=== PATIENT | female | born 1960 | race Caucasian/White ===

== ENCOUNTER → 2017-02-03 | Outpatient (CLI) | payer OTHER ==
[~2017-02-03] VITALS: Ht 172.7 cm; Wt 120.2 kg
[~2017-02-03] MED LIST: ALEV220C2 PO; ALL10TAB27 PO; CALC500T49 PO; LEXA1TAB PO; LIDOCAINE 2% INJ 100 MG/5 ML SDV (FOR ANES.) As Ordered ONE; LISI10TA4 PO; LR 1,000 ML IV SCH; MULT1TAB10 PO; OMEP20CA3 PO; PROPOFOL 200 MG/20 ML VIAL As Ordered ONE
--- NOTE | 2017-02-03 08:13 | ROOR ---
Patient Name: Michela Ocasio Procedure Date: 02/03/2017 7:29 AM Date of : 1960 Age: 56 Room: [facility] Gender: Female Note Status: Finalized Procedure: Upper GI endoscopy Indications: Esophageal reflux Providers: Juliano Harp MD Referring MD: IDANIA ALBERTO MD Requesting Provider: Medicines: Monitored Anesthesia Care Complications: No immediate complications. Procedure: Pre-Anesthesia Assessment: - Prior to the procedure, a History and Physical was performed, and patient medications and allergies were reviewed. The patient is competent. The risks and benefits of the procedure and the sedation options and risks were discussed with the patient. All questions were answered and informed consent was obtained. Patient identification and proposed procedure were verified by the physician, the nurse and the anesthesiologist in the procedure room. Mental Status Examination: alert and oriented. Airway Examination: normal oropharyngeal airway and neck mobility. CV Examination: regular rate and rhythm. Prophylactic Antibiotics: The patient does not require prophylactic antibiotics. Prior Anticoagulants: The patient has taken no previous anticoagulant or antiplatelet agents. ASA Grade Assessment: III - A patient with severe systemic disease. After reviewing the risks and benefits, the patient was deemed in satisfactory condition to undergo the procedure. The anesthesia plan was to use monitored anesthesia care (MAC). Immediately prior to administration of medications, the patient was re-assessed for adequacy to receive sedatives. The heart rate, respiratory rate, oxygen saturations, blood pressure, adequacy of pulmonary ventilation, and response to care were monitored throughout the procedure. The physical status of the patient was re-assessed after the procedure. The Endoscope was introduced through the mouth, and advanced to the second part of duodenum. The upper GI endoscopy was accomplished without difficulty. The patient tolerated the procedure well. Findings: The examined esophagus was normal. The entire examined stomach was normal. The examined duodenum was normal. Impression: - Normal esophagus. - Normal stomach. - Normal examined duodenum. - No specimens collected. Recommendation: - Discharge patient to home. - Resume regular diet. - Continue present medications. Juliano Harp MD 02/03/2017 8:12:49 AM Number of Addenda: 0 Note Initiated On: 02/03/2017 7:29 AM Estimated Blood Loss: Estimated blood loss: none.
--- NOTE | 2017-02-03 08:18 | ROOR ---
Patient Name: Michela Ocasio Procedure Date: 02/03/2017 7:30 AM Date of : 1960 Age: 56 Room: [facility] Gender: Female Note Status: Finalized Procedure: Colonoscopy Indications: Screening in patient at increased risk: Colorectal cancer in mother 60 or older, Last colonoscopy: 2011 Providers: Juliano Harp MD Referring MD: IDANIA ALBERTO MD Requesting Provider: Medicines: Monitored Anesthesia Care Complications: No immediate complications. Procedure: Pre-Anesthesia Assessment: - Prior to the procedure, a History and Physical was performed, and patient medications and allergies were reviewed. The patient is competent. The risks and benefits of the procedure and the sedation options and risks were discussed with the patient. All questions were answered and informed consent was obtained. Patient identification and proposed procedure were verified by the physician, the nurse and the anesthesiologist in the procedure room. Mental Status Examination: alert and oriented. Airway Examination: normal oropharyngeal airway and neck mobility. CV Examination: regular rate and rhythm. Prophylactic Antibiotics: The patient does not require prophylactic antibiotics. Prior Anticoagulants: The patient has taken no previous anticoagulant or antiplatelet agents. ASA Grade Assessment: III - A patient with severe systemic disease. After reviewing the risks and benefits, the patient was deemed in satisfactory condition to undergo the procedure. The anesthesia plan was to use monitored anesthesia care (MAC). Immediately prior to administration of medications, the patient was re-assessed for adequacy to receive sedatives. The heart rate, respiratory rate, oxygen saturations, blood pressure, adequacy of pulmonary ventilation, and response to care were monitored throughout the procedure. The physical status of the patient was re-assessed after the procedure. The Colonoscope [id number] #[id number] was introduced through the anus and advanced to the cecum, identified by appendiceal orifice and ileocecal valve. The colonoscopy was performed without difficulty. The patient tolerated the procedure well. The quality of the bowel preparation was excellent. Findings: The perianal and digital rectal examinations were normal. The colon (entire examined portion) appeared normal. Impression: - The entire examined colon is normal. - No specimens collected. Recommendation: - Discharge patient to home. - Resume regular diet. - Continue present medications. Juliano Harp MD 02/03/2017 8:17:36 AM Number of Addenda: 0 Note Initiated On: 02/03/2017 7:30 AM Estimated Blood Loss: Estimated blood loss: none.
[2017-02-03 08:40] VITALS: BP 116/63
== END | disposition home or self-care (01) ==
LOC: M OPP 06:16
PROVIDERS: ATTEND Surgery
DX: Z12.11 Encounter for screening for malignant neoplasm of colon (principal); Z80.0 Family history of malignant neoplasm of digestive organs; K21.9 Gastro-esophageal reflux disease without esophagitis; R12 Heartburn; Z86.14 Personal history of Methicillin resistant Staphylococcus aureus infection; M19.90 Unspecified osteoarthritis, unspecified site; F32.9 Major depressive disorder, single episode, unspecified; F41.9 Anxiety disorder, unspecified; E66.9 Obesity, unspecified; Z78.0 Asymptomatic menopausal state; R06.83 Snoring; G47.30 Sleep apnea, unspecified; Z88.2 Allergy status to sulfonamides; Z79.899 Other long term (current) drug therapy

== ENCOUNTER → 2017-04-24 | Outpatient (CLI) | payer OTHER ==
[~2017-04-24] MED LIST changes: -LIDOCAINE 2% INJ 100 MG/5 ML SDV (FOR ANES.) As Ordered ONE; -LR 1,000 ML IV SCH; -PROPOFOL 200 MG/20 ML VIAL As Ordered ONE
--- NOTE | 2017-04-24 16:41 | REP ---
LEFT FOOT COMPLETE: 04/24/2017. Clinical history: Left foot pain. Findings: No prior studies. Large dorsal spur from anterior process of the talus noted and some spurring from the T N T joints dorsally. There is an old healed and remodeled fracture distal shaft of the fifth metatarsal with degenerative changes at the first MTP joint and a mild hallux valgus deformity. IP joints also show some degenerative change. Metatarsus varus also noted and flat foot deformity on the true lateral view. No acute fracture. Impression: 1. Flat foot deformity with dorsal spurs on the anterior process of talus, tarsal navicular bones and old healed and remodeled fracture fifth metatarsal shaft distally. 2. Metatarsus varus and hallux valgus deformity. Signed by Ricardo Ibrahim MD 04/24/2017 04:33 P
--- NOTE | 2017-04-24 17:08 | REP ---
LEFT KNEE, COMPLETE: 04/24/2017: No prior studies available. The report from prior x-ray 05/10/2007 at [facility] is reviewed showing degenerative change. No images available. Clinical history: Knee pain. Findings: Five view show a left total knee arthroplasty with the three components well-aligned in relationship to the [place] bone and each other. There is a joint effusion evident. I see no fracture and no prosthetic loosening or sign of infection. No abnormal soft tissue calcifications. There are some phleboliths evident. Impression: 1. Tricompartment osteoarthritis with a joint effusion. Signed by Ricardo Ibrahim MD 04/24/2017 05:16 P
== END ==
LOC: M WUC 15:59
PROVIDERS: ATTEND Physician Assistant
DX: M79.672 Pain in left foot (principal); M17.12 Unilateral primary osteoarthritis, left knee; M25.462 Effusion, left knee

== ENCOUNTER → 2017-06-29 | Outpatient (CLI) | payer OTHER ==
--- NOTE | 2017-06-29 09:57 | REPMRS ---
Patient History The patient states she had a clinical breast exam in 05/2017. Patient is postmenopausal. Family history of colorectal cancer in mother at age 70. Benign excisional biopsy of the right breast. Digital Woman Screen Mammo: June 29, 2017 - Exam #: [id number] Bilateral CC and MLO view(s) were taken. Technologist: Yumi Flores, Technologist Prior study comparison: February 08, 2016, digital woman screen mammo performed at [facility] to [facility]. December 26, 2014, digital woman screen mammo performed at [facility] to [facility]. FINDINGS: There are scattered fibroglandular densities. There has been no change in the appearance of the mammogram from the prior studies. There is a mild amount of residual fibroglandular tissue which is fairly symmetric. There is no interval development of dominant mass, architectural distortion, or clustered microcalcification suggestive of malignancy. ASSESSMENT: BI-RADS/ACR category 1 mammogram. Negative. Recommendation Routine screening mammogram in 1 year (for women over age 40). This mammogram was interpreted with the aid of an FDA-approved computer-aided dectection system. Electronically Signed By: Pramod Zavaleta MD 06/29/17 0956
== END ==
LOC: M WHC 08:52
PROVIDERS: ATTEND Nurse Practitioner Family
DX: Z12.31 Encounter for screening mammogram for malignant neoplasm of breast (principal); Z78.0 Asymptomatic menopausal state

== ENCOUNTER → 2018-06-29 | Outpatient (CLI) | payer OTHER ==
[2018-06-29 17:48] LABS: ANION GAP 4 MEQ/L (8-16); BLOOD UREA NITROGEN 17 MG/DL (7-18); CALCIUM LEVEL 9.3 MG/DL (8.5-10.1); CARBON DIOXIDE LEVEL 32 MEQ/L (21-32); CHLORIDE LEVEL 105 MEQ/L (98-107); CREATININE FOR GFR 0.69 MG/DL (0.55-1.30); GLOMERULAR FILTRATION RATE > 60.0 (>51); GLUCOSE, FASTING 106 MG/DL (70-100); POTASSIUM SERUM 4.4 MEQ/L (3.5-5.1); SODIUM LEVEL 141 MEQ/L (136-145)
[2018-06-29 18:15] LABS: APPEARANCE, URINE CLEAR (CLEAR); BACTERIA, URINE AUTO NEGATIVE (NEGATIVE); BILIRUBIN, URINE AUTO NEGATIVE (NEGATIVE); BLOOD, URINE BLOOD NEGATIVE (NEGATIVE); COLOR, URINE YELLOW (YELLOW); GLUCOSE, URINE (UA) AUTO NEGATIVE (NEGATIVE); KETONE, URINE AUTO NEGATIVE (NEGATIVE); LEUKOCYTE ESTERASE, URINE AUTO NEGATIVE (NEGATIVE); NITRITE, URINE AUTO NEGATIVE (NEGATIVE); PROTEIN, URINE AUTO NEGATIVE (NEGATIVE); RBC, URINE AUTO 0 /HPF (0-3); SPECIFIC GRAVITY URINE AUTO 1.015 (1.002-1.035); SQUAMOUS EPITHELIAL CELL UR AU 0 /HPF (0-6); UROBILINOGEN, URINE AUTO 0.2 mg/dL (0.0-2.0); WBC, URINE AUTO 2 /HPF (0-3)
== END ==
LOC: M SMT 15:06
DX: N28.1 Cyst of kidney, acquired (principal); R30.0 Dysuria
CPT/HCPCS: 80048

== ENCOUNTER → 2018-07-07 | Outpatient (CLI) | payer OTHER ==
[~2018-07-07] MED LIST changes: -ALEV220C2 PO; -ALL10TAB27 PO; -CALC500T49 PO; +ISOVUE-370 76% 100ML VIAL (Q9967) As Ordered; -LEXA1TAB PO; -LISI10TA4 PO; -MULT1TAB10 PO; -OMEP20CA3 PO
== END ==
LOC: M RAD 13:30
DX: N28.1 Cyst of kidney, acquired (principal); R10.9 Unspecified abdominal pain; Z87.440 Personal history of urinary (tract) infections
CPT/HCPCS: Q9967

== ENCOUNTER → 2018-07-14 | Outpatient (CLI) | payer OTHER | LOC: M WHC 14:14 | DX: Z12.31 Encounter for screening mammogram for malignant neoplasm of breast (principal) | CPT/HCPCS: 77067 ==

== ENCOUNTER → 2018-07-14 | Outpatient (REF) | payer OTHER | LOC: M SFHCWAGY 15:10 | DX: Z12.4 Encounter for screening for malignant neoplasm of cervix (principal) ==

== ENCOUNTER → 2018-10-24 | Outpatient (REF) | payer OTHER ==
[~2018-10-24] MED LIST changes: +ALEV220C2 PO; +ALL10TAB28 PO; +CALC500T49 PO; -ISOVUE-370 76% 100ML VIAL (Q9967) As Ordered; +LEXA1TAB PO; +LISI10TA4 PO; +MULT1TAB10 PO; +OMEP20CA3 PO
[2018-10-24 18:00] LABS: INFLUENZA A AMPLIFICATION NEGATIVE (NEGATIVE); INFLUENZA B AMPLIFICATION NEGATIVE (NEGATIVE)
== END ==
LOC: M LAB REF 11:13
PROVIDERS: ATTEND Physician Assistant
DX: J11.1 Influenza due to unidentified influenza virus with other respiratory manifestations (principal)

== ENCOUNTER → 2019-08-11 | Outpatient (CLI) | payer OTHER ==
[~2019-08-11] MED LIST changes: -ALL10TAB28 PO; +ALL10TAB29 PO; +OMEP-172 PO; -OMEP20CA3 PO
--- NOTE | 2019-08-11 14:21 | REPMRS ---
Patient History The patient states she had a clinical breast exam in July 2019.Family history of colorectal cancer at age 70 in mother. Benign excisional biopsy of the right breast. 3D TOMOSYNTHESIS WAS PERFORMED. [facility] lifetime risk for breast cancer is 6.2%. Digital Woman Screen Mammo: August 11, 2019 - Exam #: [id number] Bilateral CC and MLO view(s) were taken. Technologist: Flower Li, Technologist Prior study comparison: July 14, 2018, bilateral digital woman screen mammo performed at [facility]. June 29, 2017, digital woman screen mammo performed at [facility]. FINDINGS: There are scattered fibroglandular densities. There has been no change in the appearance of the mammogram from the prior studies. There is a mild amount of residual fibroglandular tissue which is fairly symmetric. There is no interval development of dominant mass, architectural distortion, or clustered microcalcification suggestive of malignancy. Assessment: BI-RADS/ACR category 1 mammogram. Negative Mammogram. Recommendation Routine screening mammogram in 1 year (for women over age 40). This mammogram was interpreted with the aid of an FDA-approved computer-aided dectection system. Electronically Signed By: Pramod Zavaleta MD 08/11/19 0225
== END ==
LOC: M WHC 13:04
PROVIDERS: ATTEND Nurse Practitioner Family
DX: Z12.31 Encounter for screening mammogram for malignant neoplasm of breast (principal)

== ENCOUNTER → 2019-12-26 | Outpatient (CLI) | payer OTHER ==
[~2019-12-26] MED LIST changes: +CALC600C3 PO; +D3 U1000 PO; +METF-839 PO; +MULTCAP PO; +MV-M1TAB13 PO; -OMEP-172 PO; +OMEP1CAP73 PO; +OXYC-517 PO; +PRIL20TA2 PO; +TURM500C PO; +XARE10TA PO
[2019-12-26 16:44] LABS: HEMATOCRIT 37.6 % (36.0-47.0); HEMOGLOBIN 11.9 g/dl (12.0-15.5); MEAN CORPUSCULAR HEMOGLOBIN 27.6 pg (27.0-33.0); MEAN CORPUSCULAR HGB CONC 31.6 g/dl (32.0-36.5); MEAN CORPUSCULAR VOLUME 87.2 fl (80.0-96.0); PLATELET COUNT, AUTOMATED 266 10^3/uL (150-450); RED BLOOD COUNT 4.31 10^6/uL (4.00-5.40); WHITE BLOOD COUNT 8.2 10^3/uL (4.0-10.0)
[2019-12-26 16:56] LABS: INR 1.05; PROTHROMBIN TIME 13.4 SECONDS (11.8-14.0)
[2019-12-26 17:01] LABS: BLOOD UREA NITROGEN 19 MG/DL (7-18); CALCIUM LEVEL 9.5 MG/DL (8.5-10.1); CARBON DIOXIDE LEVEL 31 MEQ/L (21-32); CHLORIDE LEVEL 104 MEQ/L (98-107); CREATININE FOR GFR 0.67 MG/DL (0.55-1.30); GLOMERULAR FILTRATION RATE > 60.0 (>51); GLUCOSE, FASTING 92 MG/DL (70-100); POTASSIUM SERUM 4.5 MEQ/L (3.5-5.1); SODIUM LEVEL 140 MEQ/L (136-145)
--- NOTE | 2019-12-27 19:12 | ECGEPIP ---
[facility] Test Date: 2019-12-26 Pat Name: MOSHE PAIGE Department: Room: - Gender: Female [employer]: RENETTA : 1960 Requested By: Cj Taylor PA-C Order Number: [id number] Reading MD: Rao Key Measurements Intervals [place] Rate: 59 P: 62 UT: 179 QRS: 16 QRSD: 97 T: 12 QT: 396 QTc: 395 Interpretive Statements SINUS BRADYCARDIA LOW QRS VOLTAGE IN PRECORDIAL LEADS NO PRIOR Electronically Signed on 12-27-2019 19:12:22 EDT by Rao Key
== END ==
LOC: M LAB 15:46
DX: Z01.818 Encounter for other preprocedural examination (principal); M19.072 Primary osteoarthritis, left ankle and foot

== ENCOUNTER → 2019-12-31 | Outpatient (CLI) | payer OTHER | LOC: M LABSMTC 09:09 | PROVIDERS: ATTEND Anesthesiology | DX: Z01.818 Encounter for other preprocedural examination (principal); Z11.59 Encounter for screening for other viral diseases | CPT/HCPCS: C9803; U0003 ==

== ENCOUNTER 2020-01-03 06:14 | Inpatient (IN) | payer OTHER ==
--- NOTE | 2020-01-02 14:54 | HPE ---
DATE OF ADMISSION: 01/03/2020 CHIEF COMPLAINT: Left foot pain. HISTORY OF PRESENT ILLNESS: Michela Ocasio is a 59-year-old female who has longstanding pain and deformity due to advanced flatfoot deformity. She has failed conservative measures. She presents for a left double arthrodesis and gastrocnemius recession and along with a medializing calcaneal osteotomy. The patient's past medical history includes metabolic disease, gastroesophageal reflux disease (GERD), allergic rhinitis, major depressive episodes, hypertension, prediabetes. PAST SURGICAL HISTORY: Hysteroscopy, tonsillectomy, knee replacement, colonoscopy. SOCIAL HISTORY: The patient is . She lives with her spouse and daughter. She does not smoke. She does not use drugs, and she occasionally drinks. PHYSICAL EXAMINATION: Vital signs are stable. Lungs: Regular nonlabored breathing. Abdomen: Soft, nontender. Musculoskeletal: There is advanced flat foot deformity. She is neurovascularly intact. IMAGING: Radiographs and CT scan are per my notes per [facility], but the patient has advanced flatfoot deformity with associated osteoarthritis. IMPRESSION: Left flatfoot deformity. PLAN: The patient has failed conservative measures. We will proceed with a double arthrodesis with a medializing calcaneal osteotomy and a gastrocnemius recession. Risks and benefits of surgery were discussed with the patient in detail and include but are not limited to infection, damage to nerves and blood vessels, continued pain and stiffness, need for additional procedures. Informed consent was obtained. I have detailed and gone over at length the postoperative instructions, and again these are dictated in my [facility] notes. KENDRA
[2020-01-03] VITALS (7 sets, daily range): BP systolic 89–125; BP diastolic 51–61; O2SAT 98
[~2020-01-03] VITALS: Ht 167.6 cm; Wt 119.7 kg
[~2020-01-03 06:14] MED LIST changes: +LIDOCAINE 1% MDV 20ML VIAL SQ PRN; -OXYC-517 PO; -XARE10TA PO
[2020-01-03] MEDS ORDERED: LR 1,000 ML IV ONE (06:15)
[2020-01-03] MEDS ORDERED: fentaNYL 100 MCG/2 ML INJECTION (J3010) As Ordered ONE ×3 (07:14→10:13)
[2020-01-03] MEDS ORDERED: MIDAZOLAM INJ 2MG/2ML VIAL (J2250 PER 1MG) As Ordered ONE ×2 (07:14→08:11)
[2020-01-03] MEDS: fentaNYL 100 MCG/2 ML INJECTION (J3010) IV SCH ×2 (07:24→07:30)
[2020-01-03] MEDS: MIDAZOLAM INJ 2MG/2ML VIAL (J2250 PER 1MG) IV SCH ×2 (07:24→07:26)
[2020-01-03] MEDS ORDERED: ceFAZolin 2 GM/D5W 50 ML IV BAG (J0690 PER 500MG) As Ordered ONE ×2 (07:38→11:47)
[2020-01-03] MEDS ORDERED: BUPIVACAINE HCL 0.5% 30 ML VIAL As Ordered ONE (07:55)
[2020-01-03] MEDS ORDERED: ONDANSETRON 4MG/2ML VIAL As Ordered ONE (08:11)
[2020-01-03] MEDS ORDERED: ROCURONIUM BROMIDE 50 MG/5 ML VIAL As Ordered ONE ×2 (08:11→09:11)
[2020-01-03] MEDS ORDERED: dexameTHASONE 4 MG/ML 1ML VIAL (J1100 PER 1MG) As Ordered ONE (08:11)
[2020-01-03] MEDS ORDERED: SUGAMMADEX SODIUM 500 MG/5 ML VIAL (BRIDION) As Ordered ONE (08:11)
[2020-01-03] MEDS ORDERED: LIDOCAINE 2% 100MG/5ML SDV (FOR ANES.) As Ordered ONE (08:11)
[2020-01-03] MEDS ORDERED: propofoL 200 MG/20 ML VIAL As Ordered ONE ×2 (08:11→09:11)
[2020-01-03] MEDS ORDERED: KETAMINE HCL 200 MG/20 ML VIAL As Ordered ONE ×3 (08:11→10:03)
[2020-01-03] MEDS ORDERED: ACETAMINOPHEN 1000MG 100ML IV BTL (OFIRMEV) (J0131 PER 10MG) As Ordered ONE (08:11)
[2020-01-03] MEDS ORDERED: PHENYLephrine HCL 500 MCG/5 ML (100MCG/ML) SYRINGE (J2370) As Ordered ONE (08:17)
[2020-01-03] MEDS ORDERED: ePHEDrine SULFATE 25 MG/5 ML(5MG/ML) SYRINGE As Ordered ONE (08:17)
[2020-01-03] MEDS ORDERED: GLYCOPYRROLATE INJ 0.2 MG/ML 2 ML VIAL As Ordered ONE (08:57)
[2020-01-03] MEDS ORDERED: ROPIvacaine 0.5% 30ML INJECTION (J2795 PER 1MG) ONE (09:21)
[2020-01-03] MEDS ORDERED: EPINEPHrine INJ 1 MG/ML 1ML AMP ONE (09:21)
[2020-01-03] MEDS ORDERED: LIDOCAINE 1% MDV 20ML VIAL ONE (09:21)
[2020-01-03] MEDS ORDERED: SEVOFLURANE INHAL SOLN 250 ML BTL As Ordered ONE (11:55)
[2020-01-03] MEDS ORDERED: METOCLOPRAMIDE INJ 10MG/2ML VIAL (J2765 PER 1) IV PRN (15:00)
[2020-01-03] MEDS ORDERED: LR 1,000 ML IV SCH ×2 (15:00→15:15)
[2020-01-03] MEDS ORDERED: PERCOCET 5MG/325MG TAB PO PRN (15:00)
[2020-01-03] MEDS ORDERED: ONDANSETRON 4MG/2ML VIAL IV PRN ×2 (15:00→15:15)
[2020-01-03] MEDS ORDERED: fentaNYL 100 MCG/2 ML INJECTION (J3010) IV PRN (15:00)
[2020-01-03] MEDS ORDERED: oxyCODONE 5MG TAB As Ordered ONE (15:16)
[2020-01-03] MEDS: oxyCODONE 5MG TAB PO PRN ×2 (15:22→20:40)
--- NOTE | 2020-01-03 15:29 | REP ---
LEFT ANKLE: 10 views. HISTORY: Intraoperative imaging. Double arthrodesis. 4 minutes 11 seconds of fluoroscopy time is reported. FINDINGS: A sequence of 10 last image hold fluoroscopically obtained spot radiographs document calcaneal osteotomy and subtalar joint arthrodesis. No laterality markers are visible. Electronically Signed by Barak Lynch MD 01/03/2020 06:48 P
[2020-01-03] MEDS ORDERED: oxyCODONE 5MG TAB PO PRN (15:30)
[2020-01-03] MEDS ORDERED: MORPHINE 4 MG/ML 1ML VIAL/SYRINGE (J2270) IV PRN (15:30)
[2020-01-03] MEDS ORDERED: MORPHINE 2 MG/ML 1ML VIAL (J2270) As Ordered ONE (16:06)
[2020-01-03] MEDS ORDERED: MORPHINE 2 MG/ML 1ML VIAL (J2270) IV PRN (16:15)
[2020-01-03] MEDS: ceFAZolin SOD 2 GM in IV 1 EA IV SCH (17:22)
--- NOTE | 2020-01-03 19:52 | HPEPDOC ---
[facility] Medical History & Physical Date of Admission January 03, 2020 Date of Service: January 03, 2020 Primary Care Physician: Mikal Betancourt Other Provider Dr. Vinson Attending Physician: Lori Freeman MD History and Physical CHIEF COMPLAINT: Medical management HISTORY OF PRESENT ILLNESS: Patient is a 59y/o F PMH of prediabetes, anxiety,depression, HTN, GERD,BRIAN with CPAP nightly, long standing pain due to advanced flat foot deformity who is post operative left double arthrodesis with a medializing calcaneal osteotomy and a gastrocnemius recession. Patient has failed conservative measures as outpatient and this was an elective procedure planned. There were no complications with surgery. Post op patient's BP was 84 systolic, likely sedation related. She did not take antihypertensives this AM. Repeat BP improved to 114 systolic, MAP >65 mmHg. She remains on antibiotic, pain regimen is in place. She complains of pain of left foot/ankle, 5/10, located in only that area, nonradiating, sharp in [facility] racter. She admits to nonproductive cough with use of incentive spirometer, is on 2 L NC for comfort. No findings on lung exam. Prior to surgery the patient admits to feeling "tired" prior to surgery, contributes that to time change. She denied chest pain, shortness of breath, fevers, chills, n/v/d, sick contacts, cough, abdominal pain, headache, lightheadedness, dizziness. ROS: Negative except for what is mentioned above. PAST MEDICAL HISTORY: 1. Prediabetes 2. Anxiety 3. Depression 4. HTN 5. GERD 6. Environmental allergies 7. BRIAN with CPAP nightly, no oxygen 8. Obesity 9. Ovarian polyps s/p removal 10. Recurrent UTIs PAST SURGICAL HISTORY: 1. Hysteroscopy (2003, 2019) s/p endometrial polyp removal 2. Tonsillectomy (1978) 3. Right adnexal mass removal (1995) 4. Bunionectomy (05/2003), right 5. Left knee replacement (1998) 6. Colonoscopy (2016), no abnormal findings SOCIAL HISTORY: Denies smoking or illicit drug use. Social alcohol use. Occasional caffeine use daily. Lives with her in the local area. PCP Jose Betancourt PA-C. 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 Bren Nelson- [facility]. Ortho ([facility]) for knee- Dr. Duenas. Ortho for left foot drop- Dr. Vinson. Urology-Dr. Avitia FAMILY HISTORY: Father: CAD, DM type II, HTN, arthritis, stomach problems. Alive Mother: Colon cancer, HTN, arthritis, Parkinson's disease. Alive. ALLERGIES: Please see below. CURRENT MEDICATIONS: Please see below Vital SIGNS: Please see below. PHYSICAL EXAMINATION: GENERAL APPEARANCE: In NAD, resting in bed AAOx 3 HEENT: AT/NC, PEERLA, EOM intact CARDIOVASCULAR: S1S2 present, no M/R/G LUNGS: CTAB, no wheezing, rhonchi or rales ABDOMEN: obese abdomen, soft, nontender, BS + in 4 quadrants. MUSCULOSKELETAL: Left lower ext bandaged from foot to knee with extensive DRE, tape. No increased swelling or redness. ROM not tested for this ext below knee. EXTREMITIES: Pulses strong in all extremities, nonpitting edema in LLE. NEUROLOGICAL: CN 2-12 intact, no focal deficits. PSYCHIATRIC: Mood and affect wnl LABORATORY DATA: See below. IMAGING: None MICROBIOLOGY: Please see below. ASSESSMENT: 59 y/o F with advanced flat foot deformity who is post operative left double arthrodesis with a medializing calcaneal osteotomy and a gastrocnemius recession. . PLAN: 1. Flat foot deformity who is post operative left double arthrodesis with a medializing calcaneal osteotomy and a gastrocnemius recession. Pain 5/10 on pain scale, pain regimen in place. PT/OT, wound care, ortho primary. Encouraging incentive spirometer Q2 hrs while awake. 2. Hypotension likely 2/2 to sedation. Resolved. Hold off on restarting home antihypertensives for now. Lactated ringers at 90 cc/hr, to saline lock when tolerating fluids well. 3. BRIAN. Has been stable. Currently on 2 L NC for comfort, denies SOB. C/w home CPAP nightly, not on home O2 nightly. 4. GERD. PPI 5. Prediabetes. Start ISS, resume home metformin on discharge. 6. Anxiety/depression. C/w home meds. 7. DVT px. Xarelto daily. Vital Signs Vital Signs Date Time Temp Pulse Resp B/P (MAP) Pulse Ox O2 Delivery O2 Flow Rate FiO2 01/03/20 19:00 20 01/03/20 18:30 98.2 83 118/61 (80) 96 Nasal Cannula 2.0 Laboratory Data Labs 24H Laboratory Tests 2 01/03/20 07:08: Bedside Glucose (Misc Panel) 108H Home Medications Scheduled Calcium Carbonate/Vitamin D3 (Calcium 600+D Softgel) 1 Each Capsule, 1 CAP PO DAILY Cetirizine HCl (Cetirizine HCl) 10 Mg Tab, 10 MG PO DAILY Cholecalciferol (Vitamin D3) (Vitamin D3) 250 Mcg Capsule, 250 MCG PO DAILY Escitalopram Oxalate (Lexapro) 10 Mg Tab, 10 MG PO DAILY Lisinopril (Lisinopril) 10 Mg Tab, 10 MG PO DAILY Metformin HCl (Metformin HCl) 500 Mg Tablet, 500 MG PO DAILY Mv-Mn/Folic Acid/Calcium/Vit K (Women's 50 Plus Multivit Tab) 1 Each Tablet, 1 EACH PO DAILY Omeprazole (Omeprazole) 20 Mg Cap, 20 MG PO DAILY Turmeric/Turmeric Root Extract (Turmeric 500 mg Capsule) 1 Each Capsule, 500 MG PO DAILY Allergies Coded Allergies: Sulfa (Sulfonamide Antibiotics) (Verified Allergy, Intermediate, rash, 01/03/20) A-FIB/CHADSVASC A-FIB History Current/History of A-Fib/PAF?: No Current PO Anticoag Therapy: Yes Age/Risk Factor Scoring CHADSVASC: CHADSVASC Response (Comments) Value Age Risk Factor Age < 65 years old 0 Gender Risk Factor Female 1 Hx of CHF No 0 Hx of HTN Yes 1 Hx of Stroke/TIA/or VTE No 0 Hx of Diabetes Yes 1 Hx of Vascular Disease No 0 Total 3 Treatment Treatment ordered: Rivaroxaban Lori Freeman MD January 03, 2020 19:52
[2020-01-03] MEDS ORDERED: GLUCAGON INJ 1MG VIAL SC PRN (20:30)
[2020-01-03] MEDS ORDERED: GLUCOSE 4GM CHEW TABLET PO PRN (20:30)
[2020-01-03] MEDS ORDERED: DEXTROSE 50% 50 ML SYRINGE IV PRN (20:30)
[2020-01-03] MEDS: ACETAMINOPHEN 500 MG TAB PO SCH (20:39)
[2020-01-04] MEDS: ceFAZolin SOD 2 GM in IV 1 EA IV SCH ×2 (00:34→07:31)
[2020-01-04 02:00] VITALS: BP 124/60
[2020-01-04] MEDS: ACETAMINOPHEN 500 MG TAB PO SCH ×2 (04:53→12:24)
[2020-01-04 04:57] VITALS: BP 124/61
[2020-01-04 05:55] LABS: WHITE BLOOD COUNT 8.4 10^3/uL (4.0-10.0)
[2020-01-04 05:56] LABS: HEMATOCRIT 30.9 % (36.0-47.0); HEMOGLOBIN 9.8 g/dl (12.0-15.5); MEAN CORPUSCULAR HEMOGLOBIN 27.5 pg (27.0-33.0); MEAN CORPUSCULAR HGB CONC 31.7 g/dl (32.0-36.5); MEAN CORPUSCULAR VOLUME 86.8 fl (80.0-96.0); PLATELET COUNT, AUTOMATED 222 10^3/uL (150-450); RED BLOOD COUNT 3.56 10^6/uL (4.00-5.40)
[2020-01-04 06:00] VITALS: O2SAT 98
[2020-01-04 06:01] LABS: BLOOD UREA NITROGEN 14 MG/DL (7-18); CALCIUM LEVEL 8.7 MG/DL (8.5-10.1); CARBON DIOXIDE LEVEL 31 MEQ/L (21-32); CHLORIDE LEVEL 107 MEQ/L (98-107); GLOMERULAR FILTRATION RATE > 60.0 (>51); GLUCOSE, FASTING 117 MG/DL (70-100); POTASSIUM SERUM 4.1 MEQ/L (3.5-5.1); SODIUM LEVEL 142 MEQ/L (136-145)
[2020-01-04] MEDS: HumaLOG INSULIN (NovoLOG) PER UNIT SC SCH ×2 (07:31→11:37)
[2020-01-04] MEDS ORDERED: ESCITALOPRAM OXALATE 10 MG TAB (LEXAPRO) PO SCH (09:00)
[2020-01-04] MEDS ORDERED: OMEPRAZOLE 20 MG CAP PO SCH (09:00)
[2020-01-04] MEDS ORDERED: XARE10TA PO (09:23)
[2020-01-04] MEDS ORDERED: OXYC-517 PO (09:23)
[2020-01-04] MEDS: oxyCODONE 5MG TAB PO PRN ×2 (09:40→14:00)
[2020-01-04] MEDS ORDERED: RIVAROXABAN 10 MG TAB (XARELTO) PO SCH (18:00)
--- NOTE | 2020-01-13 14:09 | DSES ---
DATE OF ADMISSION: 01/03/2020 DATE OF DISCHARGE: 01/04/2020 ATTENDING PHYSICIAN: Dr. Libra Diaz ADMISSION DIAGNOSIS: Left flat foot deformity. OTHER DIAGNOSES: 1. Metabolic disease. 2. Gastroesophageal reflux disease. 3. Allergic rhinitis. 4. Major depressive disorder. 5. Hypertension. 6. Prediabetes. OPERATION PERFORMED: Left double arthrodesis with medializing calcaneal osteotomy and gastrocnemius recession. DISCHARGE DIAGNOSIS: Left flatfoot deformity status post left double arthrodesis with medializing calcaneal osteotomy, gastrocnemius recession and percutaneous Achilles lengthening. HOSPITAL COURSE: The patient was admitted on the day of surgery for the above procedure. She underwent the above procedure without complication and her hospital course was remarkable. She was up with physical therapy for per protocol and pain was controlled on the day of discharge. She will resume her preoperative medications and diet along with oral pain medications for pain control. She will use Xarelto for deep vein thrombosis (DVT) prophylaxis. Postoperative instructions to include, but not limited to elevation, wound monitoring and activity limitations were provided. The patient will follow in our office in 7-10 days for postoperative care. Please see the medical records for further details.
--- NOTE | 2020-01-26 14:29 | RO ---
DATE OF PROCEDURE: 01/03/2020 PREPROCEDURE DIAGNOSIS: Left end-stage flatfoot deformity. POSTPROCEDURE DIAGNOSIS: Left end-stage flatfoot deformity. PROCEDURE: 1. Left double arthrodesis of the subtalar and talonavicular joints. 2. Percutaneous total Achilles lengthening. 3. Gastrocnemius resection. 4. Medializing calcaneal osteotomy. SURGEON: Dr. Libra Diaz SEPARATIONS SCIENTIST: Tommy Sparrow PA-C. ANESTHESIA: General endotracheal with popliteal nerve block. ESTIMATED BLOOD LOSS: 300 mL. COMPLICATIONS: None. CONDITION: Stable to the recovery. IMPLANTS: Two 6.5 mm Synthes cannulated screws, one 4.0 mm Synthes fully threaded screw, right medical claw plate with associated 2.7 mm screws, augment injectable was also used into the subtalar and talonavicular joints. INDICATION: Michela Ocasio is a 59-year-old female who has had longstanding pain and deformity due to a significant flatfoot deformity and associated osteoarthritis. Risks and benefits of the surgery are discussed with the patient in detail and include but are not limited to infection, damage to nerves and blood vessels, continued pain and stiffness, need for additional procedures. Informed consent was obtained in the office. DESCRIPTION OF PROCEDURE: The patient was met in the preoperative holding area where her left lower extremity was marked as the correct operative side. She was taken to the operating room where she was placed in the supine position on the operating room table. Bony prominences are well padded. She received antibiotics within 60 minutes prior to incision. A well-padded tourniquet was placed in the left upper thigh. The left lower extremity was prepped and draped in the normal sterile fashion. An official time out was held where the correct patient, operative site and operative procedure were verified. An incision was made over the medial aspect of the calf at the musculotendinous junction. There was significant scarring of her fascia but this was released. Care was taken to protect the saphenous vein. Upon incision of the fascia, the soleus muscle was quite scarred to the posterior fascia and there was scarring in the interval between the gastrocnemius and soleus. This was carefully developed with my finger. A speculum was inserted and the anterior gastrocnemius fascia was released. There was improved dorsiflexion following this procedure. Copious irrigation was performed. The fascia was closed using #3-0 Vicryl and the skin was closed using #3-0 Vicryl and #3-0 nylon. Following this, the leg was exsanguinated with a 6-inch tourniquet and the tourniquet was inflated to 275 mmHg. Attention was then turned to subtalar joint. An incision was made over the lateral aspect of the foot and standard sinus tarsi approach. The subtalar joint was visualized. I used a Cochran elevator to help loosen all of the contracted tissues around the sub-fibular region and subtalar joint. There was significant rigid deformity and even with soft tissue release was difficult to fully get this to reduce. The subtalar joint was accessed using lamina spreaders. I thoroughly debrided any remaining cartilage. A subchondral drilling was performed using a 2-0 drill. I also used a 0.062 K-wire and osteotome to further fishtail the joint. After preparation of the joint, my attention was then turned to the talonavicular joint. An incision was made medially at about midway between the posterior tibial tendon and the tibialis inferior tendon. Crossing vessels were coagulated. The talonavicular joint was accessed and was significantly arthritic and there was dislocation at the joint. I used a Weinraub retractor to further gain access to the joint, which was fairly debrided using a series of curettes and osteotomes. Subchondral drilling was also performed here. Copious irrigation was then performed. Next, after the subtalar joint and talonavicular joints had been prepared, my attention was then turned to the lateral heel. Given the patient's significant deformity, it was necessary to perform a medializing calcaneal osteotomy to further improve her increased heel valgus. An incision was made over the lateral aspect of the tuberosity. After gaining access to tuberosity using a 40 micro-sagittal saw, the heel was cut. I was able to slide the heel approximately 1 cm to gain satisfactory correction and neutral orientation of the heel. This was pinned in place and further reduced the subtalar joint and talonavicular joints. Even after having done an extensive soft tissue releases both at the talonavicular joint and subtalar joints, I was able to significantly improve the position of the foot, however, it was difficult to get the talonavicular joint 100% reduced given the rigid deformity. I was able to get it close to this and pinned in place. A flat plate was performed to examined the foot and it was plantigrade against the flap with good orientation. Prior to pinning the joints augment and cancellous graft had been placed in both subtalar and tibiotalar joints. After satisfactory position foot was obtained and pinned in place, I then inserted two 6.5 mm screws across the heel slide and subtalar joint. There was good compression across the joint and heel slide and good alignment on AP, mortise, ankle views and lateral ankle as well as Gardiner heel view. Hardware was then placed on the talonavicular joint with a combination of a 4.0 mm Synthes screw and a claw plate which was inserted through a dorsal approach just medial to the tibialis anterior tendon. There was good fixation of both the subtalar and tibiotalar joints at this time. However, I will add that I did have to do a percutaneous total Achilles lengthening after sliding the heel as there was significant tightness of the foot and ankle and patient had a planar flexion contracture. This was done using three tab wounds to the posterior aspect of the Achilles all 2 cm apart. At this point, all wounds were copiously irrigated. Soft tissues were closed using #3-0 Vicryl. The skin was closed using #3-0 nylon. Patient was placed into a well-padded splint. She was extubated and transferred to the recovery room in stable condition. PLAN: Patent will be non-weightbearing for at least 2 months. She will be followed closely in the clinic to keep an eye on her wounds. She will be on Xarelto for deep venous thrombosis prophylaxis.
== END 2020-01-04 14:15 | disposition home or self-care (01) | DRG 502 ==
LOC: M OR 06:14 → M MS5PR 16:55
PROVIDERS: ADMIT Orthopaedic Surgery; ATTEND Orthopaedic Surgery
PROC: 0SGJ04Z Fusion of Left Tarsal Joint with Internal Fixation Device, Open Approach (ICD-10-PCS; 2020-01-03)
PROC: 0SGJ0JZ Fusion of Left Tarsal Joint with Synthetic Substitute, Open Approach (ICD-10-PCS; 2020-01-03)
PROC: 0KBW3ZZ Excision of Left Foot Muscle, Percutaneous Approach (ICD-10-PCS; 2020-01-03)
PROC: 0L8V0ZZ Division of Right Foot Tendon, Open Approach (ICD-10-PCS; principal; 2020-01-03 07:30)
DX: M21.42 Flat foot [pes planus] (acquired), left foot (principal); K21.9 Gastro-esophageal reflux disease without esophagitis; I10 Essential (primary) hypertension; F32.9 Major depressive disorder, single episode, unspecified; J31.0 Chronic rhinitis; E88.9 Metabolic disorder, unspecified; R73.03 Prediabetes; F41.9 Anxiety disorder, unspecified; E66.9 Obesity, unspecified; G47.33 Obstructive sleep apnea (adult) (pediatric); Z96.652 Presence of left artificial knee joint; I95.9 Hypotension, unspecified; Z79.899 Other long term (current) drug therapy

== ENCOUNTER → 2020-08-15 | Outpatient (CLI) | payer OTHER ==
[~2020-08-15] MED LIST changes: -ALL10TAB29 PO; +CETI-24 PO; -LIDOCAINE 1% MDV 20ML VIAL SQ PRN; +OXYC-517 PO; +XARE10TA PO
--- NOTE | 2020-08-15 15:03 | REPMRS ---
Patient History The patient states she had a clinical breast exam in July 2020. Family history of colorectal cancer at age 70 in mother. Benign excisional biopsy of the right breast. Digital Woman Screen Mammo: August 15, 2020 - Exam #: [id number] Bilateral CC and MLO view(s) were taken. Technologist: Violetta Grayson Technologist Prior study comparison: August 11, 2019, bilateral digital woman screen mammo performed at [facility]. July 14, 2018, bilateral digital woman screen mammo performed at [facility]. June 29, 2017, digital woman screen mammo performed at [facility]. FINDINGS: The breast tissue is almost entirely fat. The Volpara volumetric breast density category is: A. There has been no change in the appearance of the mammogram from the prior studies. There is no interval development of dominant mass, architectural distortion, or grouped microcalcification typical of malignancy. 3-D tomosynthesis shows no additional findings. Assessment: BI-RADS/ACR category 1 mammogram. Negative Mammogram. Recommendation Routine screening mammogram of both breasts in 1 year (for women over age 40). This patient's [facility] Lifetime Breast Cancer RIsk is estimated at 6.0 %. This mammogram was interpreted with the aid of an FDA-approved computer-aided dectection system. Electronically Signed By: Evangelist Lynch MD 08/15/20 [id number]
== END ==
LOC: M WHC 13:35
PROVIDERS: ATTEND Nurse Practitioner Family
DX: Z12.31 Encounter for screening mammogram for malignant neoplasm of breast (principal)

== ENCOUNTER 2021-05-15 09:01 | Emergency (ER) | payer OTHER ==
[~2021-05-15] VITALS: Ht 175.3 cm; Wt 118.2 kg
[~2021-05-15 09:01] MED LIST changes: +LISI10TA22 PO; -LISI10TA4 PO
--- NOTE | 2021-05-15 09:35 | REP ---
INDICATION: trauma COMPARISON: None. TECHNIQUE: Axial noncontrast images from the skull base to the vertex with coronal reformations. This CT examination was performed using the following dose reduction techniques: Automated exposure control, adjustment of mA and/or kv according to the patient's size, and use of iterative reconstruction technique. FINDINGS: The ventricles, sulci, and cisterns are normal in position and appearance. Zavaleta-white differentiation is maintained. No acute intracranial hemorrhage, mass/mass effect, pathology or trauma/injury. No evidence for acute infarction. No extra-axial fluid collection. Calvarium is intact. Paranasal sinuses and mastoid air cells are clear. IMPRESSION: Normal noncontrast head CT. No evidence for acute intracranial pathology or trauma/injury. <Electronically signed by Tapan Simpson > 05/15/21 0927
--- NOTE | 2021-05-15 09:37 | REP ---
INDICATION: trauma. COMPARISON: None. TECHNIQUE: Helical scanning is acquired and overlapping 2 mm high resolution axial images were generated and reviewed at bone and soft tissue window settings. Coronal and sagittal multiplanar re-formations images are generated. FINDINGS: There is no evidence of cervical spine element fracture. No skull base fracture is seen. Cervical vertebral body heights are preserved. Alignment is normal. Facet joints are normally aligned bilaterally at each cervical level on multiplanar re-formations images. There is no evidence of intraspinal or paraspinal hematoma. No extra vertebral abnormality is seen. There is mild degenerative disc spurring anteriorly at C6-7 and C7-T1. Minimal spurring is seen at the articulation between the dens and anterior arch of C1. There is facet osteoarthritic hypertrophy in the midcervical spine and a levoconvex curvature is noted in the cervical spine on coronal multiplanar re-formation images. IMPRESSION: Levoconvex curvature and degenerative spondylosis changes. Otherwise negative. No traumatic abnormality noted. <Electronically signed by Evangelist Lynch > 05/15/21 [id number]
--- NOTE | 2021-05-15 10:16 | REP ---
INDICATION: trauma. COMPARISON: None. TECHNIQUE: Right FINDINGS: There is a comminuted proximal humeral fracture with an intra-articular component affecting the greater tuberosity. The glenohumeral and acromioclavicular relationships are maintained. IMPRESSION: Proximal humeral fracture. <Electronically signed by Giovany Mg > 05/15/21 1015
--- NOTE | 2021-05-15 10:26 | REP ---
INDICATION: trauma. COMPARISON: None. TECHNIQUE: Four views of the right hand. FINDINGS: Four views of the right hand demonstrate overall normal mineralization. There is mild osteoarthritis at the 1st carpometacarpal articulation with 2 small accessory ossicles. No fracture is seen. No subluxation noted. There is also osteoarthritis at the D IP joint of the index and long finger with fragmented spurring at these locations. Mild spurring is seen at the 5th D IP joint as well. No opaque foreign body noted. IMPRESSION: Osteoarthritic changes. No fracture or subluxation seen. <Electronically signed by Evangelist Lynch > 05/15/21 [id number]
--- NOTE | 2021-05-15 11:57 | REP ---
INDICATION: trauma. COMPARISON: Comparison CT study June 06, 2020. TECHNIQUE: Four views of the left ankle are provided. FINDINGS: There is diffuse osteopenia. The patient is status post subtalar joint arthrodesis with screw fixation across the calcaneal talar articulation. There is also a metallic screw plate fixation of the talonavicular articulation. There is some flattening of the tarsal arch and midfoot osteoarthritic spurring is noted. Tibiotalar spurring is noted. There is osteoarthritis at the fibula 0 talar articulation as well. Ankle mortise is intact. No fracture is seen. IMPRESSION: Status post hindfoot and midfoot arthrodesis. Ankle osteoarthritis. Diffuse osteoporosis. No fracture seen. <Electronically signed by Evangelist Lynch > 05/15/21 [id number]
[2021-05-15 12:20] VITALS: BP 148/68
== END 2021-05-15 12:20 | disposition home or self-care (01) ==
LOC: EDBD 09:01 → M ED 09:01
DX: S42.201A Unspecified fracture of upper end of right humerus, initial encounter for closed fracture (principal); M54.2 Cervicalgia; W01.0XXA Fall on same level from slipping, tripping and stumbling without subsequent striking against object, initial encounter; Y92.9 Unspecified place or not applicable; Y93.9 Activity, unspecified; Y99.0 Civilian activity done for income or pay; M47.812 Spondylosis without myelopathy or radiculopathy, cervical region; M18.11 Unilateral primary osteoarthritis of first carpometacarpal joint, right hand; M19.072 Primary osteoarthritis, left ankle and foot; M81.8 Other osteoporosis without current pathological fracture; Z98.1 Arthrodesis status; K21.9 Gastro-esophageal reflux disease without esophagitis; G47.33 Obstructive sleep apnea (adult) (pediatric); F32.9 Major depressive disorder, single episode, unspecified; Z88.2 Allergy status to sulfonamides; Z79.899 Other long term (current) drug therapy; Z79.84 Long term (current) use of oral hypoglycemic drugs

== ENCOUNTER → 2021-05-17 | Outpatient (CLI) | payer OTHER ==
--- NOTE | 2021-05-17 10:20 | REP ---
INDICATION: DISP FX RT HUMERUS. COMPARISON: None. TECHNIQUE: Axial noncontrast images through the right shoulder with coronal and sagittal reformations. FINDINGS: There is a nondisplaced fracture involving the proximal humerus/region of the greater tuberosity. Mild surrounding soft tissue traumatic infiltration is noted without focal hematoma. Remainder of the osseous structures are intact and normal/age-appropriate. IMPRESSION: Nondisplaced fracture involving the proximal humerus and specifically the region of the greater tuberosity. <Electronically signed by Tapan Simpson > 05/17/21 1016
== END ==
LOC: M RAD 09:50
PROVIDERS: ATTEND Orthopaedic Surgery Sports Medicine
DX: S42.251A Displaced fracture of greater tuberosity of right humerus, initial encounter for closed fracture (principal); X58.XXXA Exposure to other specified factors, initial encounter; Y92.9 Unspecified place or not applicable

== ENCOUNTER → 2021-05-31 | Outpatient (CLI) | payer OTHER ==
--- NOTE | 2021-05-31 10:58 | REP ---
INDICATION: NONDISP FX OF GREATER TUBERSOSITY RT HUM. COMPARISON: 05/15/2021 TECHNIQUE: Two views FINDINGS: The proximal humeral fracture through the greater tuberosity is unchanged in alignment and position. IMPRESSION: No significant change. <Electronically signed by Giovany Mg > 05/31/21 1050
--- NOTE | 2021-05-31 11:01 | REP ---
INDICATION: PAIN IN LT KNEE. COMPARISON: 04/24/2017 TECHNIQUE: Four views. FINDINGS: The total knee arthroplasty is unchanged in alignment and position. No definite para prosthetic lucencies are identified. There is no acute fracture. The suprapatellar soft tissues are somewhat full. This is unchanged from the prior exam. IMPRESSION: Status post TKR as described above. There is no evidence of an acute abnormality. There does appear to be a small persistent joint effusion. <Electronically signed by Giovany Mg > 05/31/21 1059
== END ==
LOC: M SOG 09:46
PROVIDERS: ATTEND Orthopaedic Surgery Sports Medicine
DX: M25.562 Pain in left knee (principal); S42.254D Nondisplaced fracture of greater tuberosity of right humerus, subsequent encounter for fracture with routine healing; Z96.652 Presence of left artificial knee joint

== ENCOUNTER → 2021-07-15 | Outpatient (CLI) | payer OTHER | LOC: M SOG 14:10 | PROVIDERS: ATTEND Orthopaedic Surgery Sports Medicine | DX: S42.254D Nondisplaced fracture of greater tuberosity of right humerus, subsequent encounter for fracture with routine healing (principal); X58.XXXD Exposure to other specified factors, subsequent encounter ==

== ENCOUNTER → 2021-08-21 | Outpatient (CLI) | payer OTHER ==
--- NOTE | 2021-08-22 08:38 | REPMRS ---
Patient History The patient states she had a clinical breast exam in August 2021. Patient is postmenopausal. Family history of colorectal cancer at age 70 in mother. Benign excisional biopsy of the right breast. Tomosynthesis is performed. Volpara breast density is a. [facility] lifetime risk of breast cancer 5.8%. Covid vaccines 08/2020, 09/2020 unsure of which arms. booster 06/10/21 left arm. Patient states no breast complaints today. Patient has signed MRS History Sheet. Digital Woman Screen Mammo: August 21, 2021 - Exam #: [id number] Bilateral CC and MLO view(s) were taken. Technologist: RT Juan Prior study comparison: August 15, 2020, bilateral digital woman screen mammo performed at [facility]. August 11, 2019, bilateral digital woman screen mammo performed at [facility]. FINDINGS: There are scattered fibroglandular densities. There has been no change in the appearance of the mammogram from the prior studies. There is a mild amount of residual fibroglandular tissue which is fairly symmetric. There is no interval development of dominant mass, architectural distortion, or clustered microcalcification suggestive of malignancy. Assessment: BI-RADS/ACR category 1 mammogram. Negative Mammogram. Recommendation Routine screening mammogram in 1 year (for women over age 40). This mammogram was interpreted with the aid of an FDA-approved computer-aided dectection system. Electronically Signed By: Pramod Zavaleta MD 08/22/21 0837
== END ==
LOC: M WHC 15:30
PROVIDERS: ATTEND Nurse Practitioner Women's Health
DX: Z12.31 Encounter for screening mammogram for malignant neoplasm of breast (principal)

== ENCOUNTER → 2021-08-21 | Outpatient (REF) | payer OTHER | LOC: M SFHCWAGY 10:08 | PROVIDERS: ATTEND Nurse Practitioner Women's Health | DX: Z12.4 Encounter for screening for malignant neoplasm of cervix (principal); N95.2 Postmenopausal atrophic vaginitis | CPT/HCPCS: 87624; G0123 ==

== ENCOUNTER → 2022-01-10 | Outpatient (CLI) | payer OTHER | LOC: M SOG 08:01 | PROVIDERS: ATTEND Orthopaedic Surgery | DX: S42.251D Displaced fracture of greater tuberosity of right humerus, subsequent encounter for fracture with routine healing (principal) ==

== ENCOUNTER → 2022-04-27 | Outpatient (CLI) | payer OTHER ==
[~2022-04-27] MED LIST changes: +GABA-1171 PO; +LEXA1TAB2 PO; +MELO15TA28 PO
== END ==
LOC: M LABSMTC 10:08
PROVIDERS: ATTEND Anesthesiology
DX: Z20.828 Contact with and (suspected) exposure to other viral communicable diseases (principal); Z11.59 Encounter for screening for other viral diseases

== ENCOUNTER → 2022-06-01 | Outpatient (CLI) | payer OTHER ==
[~2022-06-01] MED LIST changes: +ALLE180T33 PO
== END ==
LOC: M LABSMTC 09:10
PROVIDERS: ATTEND Anesthesiology
DX: Z01.812 Encounter for preprocedural laboratory examination (principal); Z11.52 Encounter for screening for COVID-19

== ENCOUNTER 2022-06-03 07:29 | Day surgery (SDC) | payer OTHER ==
[~2022-06-03] VITALS: Ht 165.1 cm; Wt 125.6 kg
[~2022-06-03 07:29] MED LIST changes: +NS 1,000 ML IV ONE
[2022-06-03] MEDS ORDERED: propofoL 200 MG/20 ML VIAL As Ordered ONE (09:04)
[2022-06-03] MEDS ORDERED: LIDOCAINE 2% 100MG/5ML SDV (FOR ANES.) As Ordered ONE (09:04)
[2022-06-03] MEDS ORDERED: fentaNYL 100 MCG/2 ML INJECTION As Ordered ONE (10:00)
[2022-06-03 10:52] VITALS: BP 139/63
== END 2022-06-03 10:58 | disposition home or self-care (01) ==
LOC: M OPP 07:29
PROVIDERS: ATTEND Surgery
DX: Z12.11 Encounter for screening for malignant neoplasm of colon (principal); Z80.0 Family history of malignant neoplasm of digestive organs; K64.1 Second degree hemorrhoids; K22.89 Other specified disease of esophagus; K31.7 Polyp of stomach and duodenum; K30 Functional dyspepsia; K21.9 Gastro-esophageal reflux disease without esophagitis; Z79.1 Long term (current) use of non-steroidal anti-inflammatories (NSAID); Z79.899 Other long term (current) drug therapy; Z88.1 Allergy status to other antibiotic agents; Z88.2 Allergy status to sulfonamides; I10 Essential (primary) hypertension; G47.30 Sleep apnea, unspecified; Z99.89 Dependence on other enabling machines and devices; M13.89 Other specified arthritis, multiple sites; F41.9 Anxiety disorder, unspecified; F32.9 Major depressive disorder, single episode, unspecified
CPT/HCPCS: 43239; 45378; 88305; J3010

== ENCOUNTER → 2022-06-27 | Outpatient (REF) | payer OTHER ==
[~2022-06-27] MED LIST changes: -NS 1,000 ML IV ONE
[2022-06-27 14:16] LABS: APPEARANCE, URINE MANUAL HAZY (CLEAR); COLOR, URINE MANUAL YELLOW (YELLOW); PH,URINE MAN 6.5 UNITS (5.0 - 7.0); PROTEIN, URINE MANUAL NEGATIVE (NEGATIVE); SPECIFIC GRAVITY,URINE MANUAL 1.015 (1.002-1.035)
[2022-06-27 14:17] LABS: BILIRUBIN, URINE MANUAL NEGATIVE (NEGATIVE); BLOOD URINE MANUAL NEGATIVE (NEGATIVE); GLUCOSE, URINE (UA) MANUAL NEGATIVE (NEGATIVE); KETONE, URINE MANUAL NEGATIVE (NEGATIVE); LEUKOCYTE ESTERASE, URINE MAN POSITIVE (NEGATIVE); NITRITE, URINE MANUAL NEGATIVE (NEGATIVE); UROBILINOGEN, URINE MANUAL NORMAL (NORMAL)
[2022-06-27 14:30] LABS: BACTERIA, URINE SMALL AMOUNT; HYALINE CAST, URINE NONE SEEN /lpf (0-1); RBC, URINE NONE SEEN /hpf (0-3); SQUAMOUS EPITHELIAL CELL URINE SMALL AMOUNT /hpf (SMALL AMT)
[2022-06-27 14:31] LABS: MUCUS, URINE SMALL AMOUNT (NEGATIVE)
== END ==
LOC: M SMT 12:53
PROVIDERS: ATTEND Physician Assistant
DX: R32 Unspecified urinary incontinence (principal)

== ENCOUNTER → 2022-12-04 | Outpatient (CLI) | payer OTHER | LOC: M WHC 07:38 | PROVIDERS: ATTEND Nurse Practitioner Family | DX: Z12.31 Encounter for screening mammogram for malignant neoplasm of breast (principal) ==

== ENCOUNTER → 2023-10-30 | Outpatient (CLI) | payer OTHER | LOC: M WUC 13:29 | PROVIDERS: ATTEND Physician Assistant | DX: S39.012A Strain of muscle, fascia and tendon of lower back, initial encounter (principal); M41.86 Other forms of scoliosis, lumbar region; Y92.9 Unspecified place or not applicable; Y93.9 Activity, unspecified ==

== ENCOUNTER → 2023-12-15 | Outpatient (CLI) | payer OTHER | LOC: M WHC 10:03 | PROVIDERS: ATTEND Nurse Practitioner Family | DX: Z12.31 Encounter for screening mammogram for malignant neoplasm of breast (principal) ==

== ENCOUNTER → 2023-12-15 | Outpatient (REF) | payer OTHER | LOC: M SFHCWAGY 14:58 | PROVIDERS: ATTEND Nurse Practitioner Family | DX: Z12.4 Encounter for screening for malignant neoplasm of cervix (principal) | CPT/HCPCS: 87624; G0123 ==

== ENCOUNTER → 2024-08-31 | Outpatient (CLI) | payer OTHER ==
[2024-08-31 18:22] LABS: BLOOD UREA NITROGEN 23 MG/DL (9-23); CALCIUM LEVEL 9.7 MG/DL (8.3-10.6); CARBON DIOXIDE LEVEL 32 MMOL/L (20-31); CHLORIDE LEVEL 105 MMOL/L (98-107); CREATININE FOR GFR 0.89 MG/DL (0.55-1.30); GLOMERULAR FILTRATION RATE > 60.0 (>45); GLUCOSE, FASTING 107 MG/DL (74-106); POTASSIUM SERUM 4.6 MMOL/L (3.5-5.1); SODIUM LEVEL 143 MMOL/L (136-145)
== END ==
LOC: M PLALAB 14:24
PROVIDERS: ATTEND Otolaryngology
DX: H93.A3 Pulsatile tinnitus, bilateral (principal)

== ENCOUNTER → 2024-09-05 | Outpatient (CLI) | payer OTHER ==
[~2024-09-05] MED LIST changes: +ISOVUE-370 76% 100ML VIAL As Ordered ONE
== END ==
LOC: M RAD 09:18
PROVIDERS: ATTEND Otolaryngology
DX: H93.A3 Pulsatile tinnitus, bilateral (principal)
CPT/HCPCS: 70481; Q9967

== ENCOUNTER → 2024-12-15 | Outpatient (CLI) | payer OTHER ==
[~2024-12-15] MED LIST changes: -ISOVUE-370 76% 100ML VIAL As Ordered ONE
== END ==
LOC: M WHC 10:36
PROVIDERS: ATTEND Nurse Practitioner Family
DX: Z12.31 Encounter for screening mammogram for malignant neoplasm of breast (principal)